=== PATIENT | male | born 1995 | race Caucasian/White ===

== ENCOUNTER 2020-12-24 13:14 | Emergency (ER) | payer OTHER ==
[~2020-12-24] VITALS: Ht 177.8 cm; Wt 127.0 kg
[2020-12-24 13:31] VITALS: BP 146/77
[2020-12-24] MEDS ORDERED: LIDOCAINE 2% 1000 MG/50 ML VIAL INJ ONE (13:35)
[2020-12-24] MEDS ORDERED: IBUPROFEN 600 MG TAB PO ONE (13:35)
--- NOTE | 2020-12-24 13:36 | NUR ---
Patient ambulated to bed 5.
--- NOTE | 2020-12-24 13:55 | NUR ---
25 Y/O M BIB SELF FROM HOME, C/O TOE PAIN ON L FOOT 1ST DIGIT FOR 4 MONTHS NOW. AREA IS RED, EDEMA PRESENT, NO DISCHARGE. 02/27 PMH: NONE NKA
[2020-12-24] MEDS ORDERED: BACITRACIN OINT 500 UNITS/GM PKT TP ONE ×2 (14:14→14:15)
[2020-12-24] MEDS ORDERED: CEPH500C16 PO (14:20)
[2020-12-24] MEDS ORDERED: IBUP-2213 PO (14:20)
[2020-12-24] MEDS ORDERED: BACI1PAC6 TP (14:20)
--- NOTE | 2020-12-24 14:20 | NUR ---
WOUND CLEANED, BACITRACIN APPLIED AND NONADHERENT DRESSING APPLIED
--- NOTE | 2020-12-24 14:30 | NUR ---
Patient discharged with v/s stable. Written and verbal after care instructions about ingrown toenail given and explained. Patient alert, oriented and verbalized understanding of instructions. Ambulatory with steady gait. All questions addressed prior to discharge. ID band removed. Patient advised to follow up with PMD. Rx of ibuprofen, keflex, and bacitracin given. Patient educated on indication of medication including possible reaction and side effects. Opportunity to ask questions provided and answered.
[2020-12-24 14:31] VITALS: BP 146/77
== END 2020-12-24 14:30 | disposition home or self-care (01) ==
LOC: MED 13:14
DX: L60.0 Ingrowing nail (principal); R03.0 Elevated blood-pressure reading, without diagnosis of hypertension; Z79.899 Other long term (current) drug therapy
CPT/HCPCS: 11730; 99284; J2001